=== PATIENT | female | born 1960 | race American Indian/Alaskan Native ===

== ENCOUNTER 2017-06-15 10:27 | Outpatient (CLI) | payer OTHER ==
--- NOTE | 2017-06-15 12:14 | Mammography Report ---
Screening mammogram: Routine views are obtained and compared to a prior exam in December 2015. The patient has an intermediate density fibroglandular pattern which is generally symmetrically and diffusely distributed. In the anterior left breast just below and medial to the nipple there is an asymmetric 1 cm sized nodular appearing density that I cannot identify on prior exam. The findings otherwise appear unchanged and unremarkable bilaterally. CAD used. Impression: Left breast asymmetry. Recommendation: Spot compression imaging of the left breast and ultrasound as needed. BI-RADS CATEGORY: 0 = Needs additional imaging evaluation ACR BI-RADS MAMMOGRAPHIC CODES: 0 = Needs additional imaging evaluation; 1 = Negative; 2 = Benign; 3 = Probably benign; 4 = Suspicious; 5 = Malignant; 6 = Known biopsy-proven malignancy COMMENT: 1. Dense breast tissue, i.e., adenosis, fibrocystic changes, etc., may obscure an underlying neoplasm. 2. Approximately 10% of cancers are not detected with mammography. 3. A negative mammography report should not delay biopsy if a clinically suspicious mass is present.
--- NOTE | 2017-06-15 14:10 | Ultrasound Report ---
Thyroid ultrasound: The right lobe measures 1.6 x 2.4 x 4.9 cm. In the superior lobe there is a circumscribed homogeneously hyperechoic nodule measuring 1.2 x 1.8 cm. There is moderate internal flow by color imaging. 3 other circumscribed hypoechoic masses are noted in the mid and lower lobes ranging in size from 6 mm to 10 mm. No suspicious characteristics. The left lobe measures 1.3 x 1.3 x 2.5 cm. A small cyst is noted in the upper pole but the gland is otherwise echogenically unremarkable. The isthmus is a thickness of 4 mm. Impression: Multiple low suspicion masses in the right lobe with a dominant mass superiorly. Recommendation: Repeat ultrasound in 6 months to confirm stability.
== END 2017-06-15 10:28 | disposition home or self-care (01) ==
LOC: SPVIMAG 10:27
DX: Z12.31 Encounter for screening mammogram for malignant neoplasm of breast (principal); E04.1 Nontoxic single thyroid nodule; E07.89 Other specified disorders of thyroid
CPT/HCPCS: 76536; 77067

== ENCOUNTER 2017-07-27 08:42 | Outpatient (CLI) | payer OTHER ==
--- NOTE | 2017-07-27 09:25 | Mammography Report ---
LEFT DIGITAL DIAGNOSTIC MAMMOGRAM : 07/27/17 08:42:00 CLINICAL: Recalled for asymmetries. COMPARISON:06/15/17 screening FINDINGS: Additional mammographic views of the left breast were performed and are negative. IMPRESSION: No mammographic evidence of malignancy. BI-RADS CATEGORY: 1 -- Negative RECOMMENDATION: Routine mammographic screening in one year. ACR BI-RADS MAMMOGRAPHIC CODES: 0 = Needs additional imaging evaluation; 1 = Negative; 2 = Benign; 3 = Probably benign; 4 = Suspicious; 5 = Malignant; 6 = Known biopsy-proven malignancy COMMENT: 1. Dense breast tissue, i.e., adenosis, fibrocystic changes, etc., may obscure an underlying neoplasm. 2. Approximately 10% of cancers are not detected with mammography. 3. A negative mammography report should not delay biopsy if a clinically suspicious mass is present. COMMENT: Patient follow-up letters are generated via our [employer] application.
== END 2017-07-27 08:43 | disposition home or self-care (01) ==
LOC: SPVWC 08:42
DX: R92.8 Other abnormal and inconclusive findings on diagnostic imaging of breast (principal)